=== PATIENT | female | born 1980 | race Caucasian/White ===

== ENCOUNTER → 2016-03-26 | Outpatient (CLI) | payer BC ==
[~2016-03-26] VITALS: Ht 165.1 cm; Wt 49.0 kg
[~2016-03-26] MED LIST: APRISO0.375 GM PO; REMICADE10 MG IV; SULFASALAZINE500 MG ORAL
[2016-03-26 14:17] VITALS: BP 105/69
--- NOTE | 2016-03-26 15:02 | GI Initial Consult Note ---
History of Present Illness General Date patient seen: Mar 26, 2016 Time patient seen: 14:55 Referring physician: AMY PARR Reason for Consultation: SECOND OPINION / COLITIS Present Illness HPI 35 year female patient referred to [facility] by Dr. Parr for second opinion. The patient has hx of UC dx in 2012 on remicade 300mg since Mar 2014 with breaks up to 5 months now started on 500 mg on 03/11/16. Pt has history of taking 6MP in the past. Currently on remicade + sulfasalazine 4 tabs daily. Pt presents today asymptomatic with no general GI complaints. Colonoscopy with biopsy with unremarkable results shown only to have proctitis. DATE OF OPERATION: 01/02/2016 PROCEDURE: Colonoscopy with biopsy. SURGEON: Kristen Mcadams M.D. PRE-ENDOSCOPIC DIAGNOSIS: History of ulcerative colitis with recent flare. POST-ENDOSCOPIC DIAGNOSES: 1. Scared colon with numerous pseudopolyps and loss of mucosal ere details consistent with previous long-standing ulcerative colitis throughout the colon. 2. Normal terminal ileum. 3. Status post random biopsy of the right colon, transverse colon, descending colon, sigmoid colon, and rectum. 4. 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 ASSESSMENT: This patient has a flare-up for ulcerative colitis manifested as her proctitis, which is confirmed endoscopically. The proctitis is somewhat mild and should likely resolve with treatment superimposed on Remicade. Suspected that her flare was due to her missing one of her Remicade infusions. RECOMMENDATIONS: 1. Continue Remicade infusions. 2. A trial of Azulfidine twice daily. 3. Outpatient follow up. Home Meds Reported Medications Sulfasalazine* (AZULFIDINE*) 500 Mg Tablet, 500 MG ORAL DAILY, TAB 03/26/16 Infliximab (Remicade) 100 Mg Vial, 0 IV ONCE A WEEK, VIAL 01/01/16 Med list reviewed/reconciled: Yes Allergies: Coded Allergies: No Known Allergies (Unverified , 01/01/16) Patient History History Provided By: Patient, Medical Record [facility] Narrative UC PSHx Tonsillectomy Family History Narrative Grandfather - Lung CA Social History: Reports: alcohol use - 2 x week Review of Systems All Other Systems: negative except mentioned in HPI Physical Exam Vital Signs Date Time Temp Pulse Resp B/P Pulse Ox O2 Delivery O2 Flow Rate FiO2 03/26/16 14:17 98.0 81 16 105/69 Sp02 EP Interpretation: reviewed General Appearance: well appearing, no apparent distress, alert, thin Head: normocephalic EENT: normal ENT inspection Neck: normal inspection, full range of motion, supple Respiratory: normal inspection, normal breath sounds, no respiratory distress Cardiovascular: normal rate Gastrointestinal: normal inspection, non tender, normal bowel sounds Rectal: deferred Genitourinary: adnexa normal Musculoskeletal: normal inspection, back normal Neurologic: normal inspection, alert, oriented x3, responsive Psychiatric: normal inspection, judgement/insight normal, memory normal Skin: normal inspection, normal color, no rash, warm/dry Lymphatic: normal inspection, no adenopathy GI: Plan Problems: (1) Proctitis (2) Ulcerative colitis (3) H/O colonoscopy Plan trial rx Apriso cont sulfasalazine patient to consider d/c Remicade if asymptomatic - 2nd option to consider Soo if Remicade is dc and flare returns consider colonoscopy if another flare returns RTC prn Seen with Dr. Amin. Thank you for referring this kind patient. Yessica Chavis N.P. Mar 26, 2016 15:02
== END | disposition home or self-care (01) ==
LOC: PAN 14:02
DX: K51.90 Ulcerative colitis, unspecified, without complications (principal); K62.89 Other specified diseases of anus and rectum
CPT/HCPCS: 99201

== ENCOUNTER → 2016-05-19 | Outpatient (CLI) | payer BC ==
[2016-05-19 09:24] VITALS: BP 104/69
--- NOTE | 2016-05-19 09:59 | GI Progress Note ---
Assessment/Plan Problems: (1) Ulcerative colitis ICD Codes: K51.90 - Ulcerative colitis, unspecified, without complications SNOMED: 81140214 (2) Proctitis ICD Codes: K62.89 - Other specified diseases of anus and rectum SNOMED: 4054113 (3) H/O colonoscopy ICD Codes: Z98.890 - Other specified postprocedural states SNOMED: 32316512, [id number] Status: stable Status Narrative Seen with Dr. Amin. Assessment/Plan Rx Apriso 4 tab daily patient asymptomatic at this time, has been off Remicade x 2 weeks - 2nd option to consider Soo if Remicade is dc and flare returns ordered bone density study cont Vit D avoid NSAIDs consider colonoscopy if another flare returns RTC x 3 months Subjective Subjective sinus infection >> positive Objective Last 24 Hour Vital Signs Date Time Temp Pulse Resp B/P Pulse Ox O2 Delivery O2 Flow Rate FiO2 05/19/16 09:24 98.5 82 16 104/69 General Appearance: no apparent distress, alert Cardiovascular: normal rate Respiratory/Chest: normal breath sounds, no respiratory distress Abdominal Exam: normal bowel sounds, non tender, soft Objective DATE OF OPERATION: 01/02/2016 PROCEDURE: Colonoscopy with biopsy. SURGEON: Kristen Mcadams M.D. PRE-ENDOSCOPIC DIAGNOSIS: History of ulcerative colitis with recent flare. POST-ENDOSCOPIC DIAGNOSES: 1. Scared colon with numerous pseudopolyps and loss of mucosal ere details consistent with previous long-standing ulcerative colitis throughout the colon. 2. Normal terminal ileum. 3. Status post random biopsy of the right colon, transverse colon, descending colon, sigmoid colon, and rectum. 4. 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 ASSESSMENT: This patient has a flare-up for ulcerative colitis manifested as her proctitis, which is confirmed endoscopically. The proctitis is somewhat mild and should likely resolve with treatment superimposed on Remicade. Suspected that her flare was due to her missing one of her Remicade infusions. RECOMMENDATIONS: 1. Continue Remicade infusions. 2. A trial of Azulfidine twice daily. 3. Outpatient follow up. Yessica Chavis N.P. May 19, 2016 09:59
== END | disposition home or self-care (01) ==
LOC: PAN 09:12
DX: K51.90 Ulcerative colitis, unspecified, without complications (principal); K62.89 Other specified diseases of anus and rectum
CPT/HCPCS: 99211